=== PATIENT | male | born 1985 | race Caucasian/White ===

== ENCOUNTER 2017-11-27 19:13 | Emergency (ER) | payer SELFPAY ==
--- NOTE | 2017-11-27 19:23 | PDOC ---
Rapid Medical Evaluation Time Seen by Provider: 11/27/17 19:19 Medical Evaluation: Allergies Allergy/AdvReac Type Severity Reaction Status Date / Time No Known Allergies Allergy Verified 08/28/12 16:16 11/27/17 19:20 I have performed a [id number] evaluation of this patient. The patient presents with a chief complaints of: Epigastric pain with mid back pain x3d. Pain worsened today. Pain worse after eating top RUQ Pain started mild while driving x3d ago. Did not take an6y pain meds. Pain is alleviated minimally when "I hold my belly up". Pain exacerbated when sitting Neg n/v/d, sob Pertinent physical exam findings: I have ordered the following: cbc/cmp/lipase/ua The patient will proceed to the ED for further evaluation.
[2017-11-27 19:24] VITALS: BMI 40.3
[2017-11-27 19:46] LABS: BASO % 0.4 % (0-2.0); EOS % 1.7 % (0-4.5); HEMATOCRIT 39.2 % (35.4-49); HEMOGLOBIN 13.2 GM/dL (11.7-16.9); LYMPH % 24.1 % (8-40); MCHC 33.6 g/dl (32.0-35.9); MEAN PLT VOLUME 8.4 fl (7.5-11.1); NEUT % 65.8 % (42.8-82.8); PLATELET COUNT 309 K/MM3 (134-434); RBC 4.26 M/mm3 (4.00-5.60); RDW 12.9 % (11.9-15.9); WHITE BLOOD COUNT 5.8 K/mm3 (4.0-10.0)
--- NOTE | 2017-11-27 20:09 | PDOC ---
History of Present Illness - General History Source: Patient Exam Limitations: No Limitations - History of Present Illness Initial Comments: 11/27/17 22:46 The patient is a 32 year old male with no significant PMH who presents to the emergency department with left sided epigastric pain for 3 days. The patient also reports some associated mid back pain. 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 The patient reports that his left sided epigastric pain is worsened after eating and sitting. He states that it feels like something is swollen inside. He denies any nausea or vomiting surgeries or constipation. The patient denies any other symptoms. He denies any fever, chills, nausea, vomit, diarrhea, or urinary symptoms. He denies any chest pain, shortness of breath, headache and dizziness. The patient denies any other complaints. <Ruthie Kim - Last Filed: 11/27/17 22:46> <Hattie Dela Cruz - Last Filed: 11/28/17 01:08> - General Chief Complaint: Pain, Acute Stated Complaint: ABDOMINAL PAIN Time Seen by Provider: 11/27/17 19:19 Past History <Ruthie Kim - Last Filed: 11/27/17 22:46> - Past Medical History Cancer: No Cardiac Disorders: No CVA: No COPD: No DVT: No - Suicide/Smoking/Psychosocial Hx Smoking Status: No Smoking History: Never smoked Number of Cigarettes Smoked Daily: 0 Information on smoking cessation initiated: No Hx Alcohol Use: No Drug/Substance Use Hx: No Substance Use Type: None <Hattie Dela Cruz - Last Filed: 11/28/17 01:08> - Past Medical History Allergies/Adverse Reactions: Allergies Allergy/AdvReac Type Severity Reaction Status Date / Time No Known Allergies Allergy Verified 08/28/12 16:16 Home Medications: Ambulatory Orders No Home Medications 0 dose .ROUTE UTDICT 08/28/12 Review of Systems - Review of Systems Able to Perform ROS?: Yes Comments:: 11/27/17 22:46 GENERAL/CONSTITUTIONAL: No fever or chills. No weakness. HEAD, EYES, EARS, NOSE AND THROAT: No change in vision. No ear pain or discharge. No sore throat. CARDIOVASCULAR: No chest pain or shortness of breath. RESPIRATORY: No cough, wheezing, or hemoptysis. GASTROINTESTINAL: (+)left sided epigastric pain. No nausea, vomiting, diarrhea or constipation. GENITOURINARY: No dysuria, frequency, or change in urination. MUSCULOSKELETAL: (+)back pain. No joint or muscle swelling or pain. No neck pain. SKIN: No rash NEUROLOGIC: No headache, vertigo, loss of consciousness, or change in strength/ sensation. ENDOCRINE: No increased thirst. No abnormal weight change. HEMATOLOGIC/LYMPHATIC: No anemia, easy bleeding, or history of blood clots. ALLERGIC/IMMUNOLOGIC: No hives or skin allergy. <Ruthie Kim - Last Filed: 11/27/17 22:46> *Physical Exam - Vital Signs Last Vital Signs Temp Pulse Resp BP Pulse Ox 98.6 F 18 L 16 127/76 99 11/27/17 21:49 11/27/17 21:49 11/27/17 21:49 11/27/17 21:49 11/27/17 21:49 - Physical Exam Comments: 11/27/17 22:47 GENERAL: Awake, alert, and fully oriented, in no acute distress HEAD: No signs of trauma EYES: PERRLA, EOMI, sclera anicteric, conjunctiva clear ENT: Auricles normal inspection, hearing grossly normal, nares patent, oropharynx clear without exudates. Moist mucosa NECK: Normal ROM, supple, no lymphadenopathy, JVD, or masses LUNGS: Breath sounds equal, clear to auscultation bilaterally. No wheezes, and no crackles HEART: Regular rate and rhythm, normal S1 and S2, no murmurs, rubs or gallops ABDOMEN: (+)minimal abdominal pain with palpation. No flank pain. Soft, normoactive bowel sounds. No guarding, no rebound. No masses EXTREMITIES: Normal range of motion, no edema. No clubbing or cyanosis. No cords, erythema, or tenderness NEUROLOGICAL: Cranial nerves II through XII grossly intact. Normal speech, normal gait SKIN: Warm, Dry, normal turgor, no rashes or lesions noted. <Ruthie Kim - Last Filed: 11/27/17 22:46> - Vital Signs Last Vital Signs Temp Pulse Resp BP Pulse Ox 98 F 97 H 20 128/71 98 11/27/17 19:20 11/27/17 19:20 11/27/17 19:20 11/27/17 19:20 11/27/17 19:20 <Hattie Dela Cruz - Last Filed: 11/28/17 01:08> Heart Score/ECG Review - ECG Intrepretation Rhythm: Regular Rhythm - Sartell Sartell: Normal - P and MT Delta Wave(s) Present: No WPW: No - QRS Q Wave Present: No - ST and T Early Repolarization: No Non Specific ST-T Wave changes: Yes Flattened T Waves: No Prolonged Q-T Interval: No - ECG Impressions Normal ECG: Yes Non-specific ST Elevation: Yes Ischemic Changes: No <Hattie Dela Cruz - Last Filed: 11/28/17 01:08> ED Treatment Course - LABORATORY CBC & Chemistry Diagram: 11/27/17 19:34 11/27/17 19:34 - ADDITIONAL ORDERS Additional order review: Laboratory Results 11/27/17 11/27/17 19:34 19:26 Sodium 143 Potassium 3.8 Chloride 106 Carbon Dioxide 29 Anion Gap 8 BUN 13 Creatinine 1.1 Creat Clearance w eGFR > 60 Random Glucose 129 H Calcium 8.7 Total Bilirubin 0.7 AST 18 ALT 32 Alkaline Phosphatase 85 Total Protein 7.6 Albumin 3.9 Lipase 131 Urine Color Yellow Urine Appearance Clear Urine pH 5.0 Ur Specific Sinclair 1.024 Urine Protein Negative Urine Glucose (UA) Negative Urine Ketones Negative Urine Blood Negative Urine Nitrite Negative Urine Bilirubin Negative Urine Urobilinogen Negative Ur Leukocyte Esterase Negative 11/27/17 19:34 RBC 4.26 MCV 92.0 MCHC 33.6 RDW 12.9 MPV 8.4 Neutrophils % 65.8 Lymphocytes % 24.1 Monocytes % 8.0 Eosinophils % 1.7 Basophils % 0.4 <Ruthie Kim - Last Filed: 11/27/17 22:46> - LABORATORY CBC & Chemistry Diagram: 11/27/17 19:34 11/27/17 19:34 <Hattie Dela Cruz - Last Filed: 11/28/17 01:08> Medical Decision Making - Medical Decision Making 11/27/17 21:06 Pt has normal blood tests and UA. Exam is normal as well. He complains of left sided abd pain; likely gas and constipation. 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 Moved his bowels this AM. Pt is unable to eat healthy food as he drives. 11/27/17 21:07 EKG is NSR 11/28/17 01:08 FUA XR abd shows gas and constipation <Hattie Dela Cruz - Last Filed: 11/28/17 01:08> *DC/Admit/Observation/Transfer - Attestations Scribe Attestion: 11/27/17 22:47 Documentation prepared by Ruthie Kim, acting as director of medical staff services for Hattie Dela Cruz MD. <Ruthie Kim - Last Filed: 11/27/17 22:46> - Discharge Dispostion Decision to Admit order: No <Hattie Dela Cruz - Last Filed: 11/28/17 01:08> Diagnosis at time of Disposition: Gas pain - Discharge Dispostion Disposition: HOME Condition at time of disposition: Stable - Patient Instructions Printed Discharge Instructions: Getting on the Road to Whole Grains, Eating a Diet Rich in Fruits and Vegetables, DI for Dyspepsia
[2017-11-27 20:13] LABS: ALBUMIN 3.9 g/dl (3.4-5.0); ALK PHOS 85 U/L (45-117); ANION GAP 8 (8-16); BILIRUBIN,TOTAL 0.7 mg/dL (0.2-1.0); BLOOD UREA NITROGEN 13 mg/dL (7-18); CALCIUM 8.7 mg/dL (8.5-10.1); CHLORIDE 106 mmol/L (98-107); CO2 29 mmol/L (21-32); CREATININE 1.1 mg/dL (0.7-1.3); GLUCOSE,RANDOM 129 mg/dL (74-106); LIPASE 131 U/L (73-393); POTASSIUM 3.8 mmol/L (3.5-5.1); SGOT/AST 18 U/L (15-37); SGPT/ALT 32 U/L (12-78); SODIUM 143 mmol/L (136-145); TOT PROT 7.6 g/dl (6.4-8.2)
[2017-11-27 20:56] LABS: URINE APPEARANCE CLEAR; URINE BILIRUBIN NEGATIVE (<2.0 mg/dL); URINE COLOR YELLOW; URINE GLUCOSE (UA) NEGATIVE (NEGATIVE); URINE KETONE NEGATIVE (NEGATIVE); URINE LEUK ESTERASE NEGATIVE (NEGATIVE); URINE NITRITE NEGATIVE (NEGATIVE); URINE PROTEIN NEGATIVE (NEGATIVE); URINE UROBILINOGEN NEGATIVE mg/dL (0.2-1.0)
[2017-11-27 21:53] VITALS: BP 127/76; PULSE 18; TEMP 98.6
--- NOTE | 2017-11-29 08:54 | EKG ---
Test Reason : Blood Pressure : / mmHG Vent. Rate : 087 BPM Atrial Rate : 087 BPM P-R Int : 166 ms QRS Dur : 086 ms QT Int : 352 ms P-R-T Axes : 062 048 023 degrees QTc Int : 423 ms NORMAL SINUS RHYTHM NONSPECIFIC ST AND T WAVE ABNORMALITY ABNORMAL ECG NO PREVIOUS ECGS AVAILABLE Confirmed by AZEEM INFANTE, PADILLA ([id number]) on 11/29/2017 8:53:53 AM Referred By: Confirmed By:PADILLA GANN MD
== END 2017-11-27 21:50 | disposition home or self-care (01) ==
LOC: JER 19:13
DX: R14.1 Gas pain (principal)
CPT/HCPCS: 36415; 74019-TC-FY; 76705-TC; 80053; 81003; 83690; 85025; 93005; 93010; 99282-25